=== PATIENT | male | born 1940 | race Caucasian/White ===

== ENCOUNTER 2020-07-10 07:06 | Day surgery (SDC) | payer OTHER ==
--- NOTE | 2020-07-05 13:14 | RAD REPORT ---
EXAM DESCRIPTION: RAD - Chest Pa And Lat (2 Views) - 07/05/2020 1:05 pm CLINICAL HISTORY: pre oppending hernia repair COMPARISON: March 27, 2020 TECHNIQUE: Frontal and lateral views of the chest were obtained. FINDINGS: The lungs are fibrotic. Bilateral nipple shadows are present. Additional calcified granulo ma noted. Diaphragm is flattened. Increased retrosternal space noted. An acute mass or infiltrate is not identified. Heart size is normal and central vasculature is within normal limits. No pleural e ffusion or pneumothorax seen. No acute bony finding noted. No aortic abnormality. IMPRESSION: COPD findings similar to March 2020. No acute finding.
[2020-07-05 14:06] LABS: Absolute Lymphocytes (CBC) 1.3 K/uL (0.7-4.9); Basophils % 0.7 % (0-1.3); Lymphocytes % 20.4 % (15.3-44.8); RBC Red Blood Cell Count 4.17 M/uL (4.33-5.43)
[2020-07-05 14:16] LABS: Potassium 4.1 mmol/L (3.5-5.1)
--- NOTE | 2020-07-08 07:48 | EKG ---
Test Date: 2020-07-05 Test Time: 12:40:24 Upper And Bottom Lacer Hand: JH MEASUREMENT RESULTS: Intervals: Rate: 63 WY: 188 QRSD: 112 QT: 434 QTc: 444 [place]: P: 80 WY: 188 QRS: 43 T: 67 INTERPRETIVE STATEMENTS: Normal sinus rhythm Incomplete left bundle branch block Borderline ECG Compared to ECG 03/27/2020 09:50:38 Left bundle-branch block now present ST (T wave) deviation no longer present Electronically Signed On 07-08-20 07:44:30 CDT by Milad Bradley
[2020-07-10] MEDS ORDERED: Ringers Lactate 1,000 ML IV ONE (07:37)
[2020-07-10] MEDS ORDERED: MIDAZOLAM HCL 2 MG/2 ML INJ ONE (07:46)
[2020-07-10] MEDS ORDERED: propofoL 200 MG/20 ML VIAL IV ONE ×2 (07:46→09:28)
[2020-07-10] MEDS ORDERED: LIDOCAINE 2% MPF 5 ML VIAL ONE (07:46)
[2020-07-10] MEDS ORDERED: FENTANYL CITR 100 MCG/2 ML ONE ×2 (07:46→09:28)
[2020-07-10] MEDS: CEFAZOLIN/SWI 1gm 1 GM/10 ML SYR ONE ×2 (09:06→09:30)
[2020-07-10] MEDS ORDERED: ROCURONIUM 50 MG/5 ML VIAL IV ONE (09:28)
[2020-07-10] MEDS ORDERED: LIDOCAINE 1% MPF 5 ML VIAL ONE (09:28)
[2020-07-10] MEDS ORDERED: LIDOCAINE JELLY 2%- 5 ML TUBE ONE (09:40)
[2020-07-10] MEDS ORDERED: EPHEDRINE SULF 50 MG/ML VIAL ONE (09:55)
[2020-07-10] MEDS ORDERED: NS 0.9% VIAL 10 ML ONE (09:55)
[2020-07-10] MEDS ORDERED: KETOROLAC 30 MG/ML INJ ONE (10:05)
[2020-07-10] MEDS ORDERED: ONDANSETRON 4 MG/2 ML VIAL ONE (10:05)
[2020-07-10] MEDS ORDERED: GLYCOPYRROLATE 0.2 MG/ML SYR ONE (10:05)
[2020-07-10] MEDS ORDERED: NEOSTIGMINE 1 MG/ML -5 ML ONE (10:05)
[2020-07-10] MEDS ORDERED: dexAMETHasone 4 MG/ML VIAL ONE (10:06)
--- NOTE | 2020-07-10 10:12 | P.BOP ---
Preoperative diagnosis: tender right inguinal hernia Postoperative diagnosis: same Primary procedure: Open repair of tender right inguinal hernia with mesh Hadoop Engineer: KRISHNA BREWSTER (NIGHT NURSE) Estimated blood loss: <10cc Specimen: hernia sac, lipoma of cord Findings: as above Anesthesia: General Complications: None Implants: mesh Transferred to: Recovery Room Condition: Good
--- NOTE | 2020-07-10 11:02 | OP ---
Date of Procedure: 07/10/2020 Surgeon: Jacob Price MD Preoperative Diagnosis: Tender right inguinal hernia. Postoperative Diagnosis: Tender right inguinal hernia. Procedure: Open repair of tender right inguinal hernia with mesh. Anesthesia: General plus local. Specimen: Hernia sac and lipoma of the cord. Indications: This is the case of a 79-year-old patient who comes to us with above diagnosis. Fully explained the benefits, alternatives, and risks of the repair of a tender right inguinal hernia with mesh with benefits, alternatives, and risks including but not limited to infection, bleeding, damage to adjacent structures, anesthesia complication, recurrence, [place], and even . He also understands this may not relieve any symptoms. He might need more than one surgical intervention. He agreed an d signed a consent. The patient also advised we are going to be using mesh in that region. Pros and cons of mesh placement were discussed with the patient. All his questions were answered to his sati sfaction. He did consent for the use of mesh. Procedure In Detail: The patient was brought to the operating room, placed in supine position. Anes thesia was achieved without complication. A time-out was called. Abdomen and inguinal region were p repped and draped in a sterile fashion, followed by incision in the skin going through Roya's fasci a until we find external oblique aponeurosis that was opened in direction of the fibers to connect to the superficial inguinal ring. The ilioinguinal nerve and iliohypogastric nerve were identified and protected behind external oblique aponeurosis. Sturbridge placed around the spermatic cord. After laura t, the spermatic cord area with cremasteric fibers was dissected and we identified the hernia sac and the lipoma of the cord. The vas deferens and the rest of the spermatic cord structures were protect ed at all times. The hernia sac was opened. We reduced the intestinal content that is not incarcera sukhwinder and is still viable and then twisted the hernia sac and suture ligated with 2-0 Prolene. The lip daina of the cord was transected with the help of a Chromic to be tied. At that moment, I proceeded to place a mesh plug over the deep inguinal ring and secured in place with VersaTack protecting the spe rmatic cord structures at all time. After that, I placed a mesh sheet on the floor of the canal secu ring that to the pubic tubercle, shelving edge of inguinal ligament and transversalis fascia, looped around the spermatic cord without strangulation. The area was irrigated. Suction was done. Local a nesthesia was applied. After that, I proceeded to bring the ilioinguinal nerve and iliohypogastric n erve back into the inguinal canal, and reconstructing the superficial inguinal ring, and closed the e xternal oblique aponeurosis protecting the nerve at all times. The area was irrigated. 3-0 chromic was used for the subcutaneous tissue and then the skin with everett. Sponge count and instrument cou nts were correct. The patient tolerated the procedure well. The patient was sent to recovery in sta ble condition. At the end of the case, the testicles were within the scrotum. JEAN-PIERRE/MAURICIO Voice ID: [id number] Report ID: [id number]
--- NOTE | 2020-07-10 11:04 | DS ---
Date of Discharge: 07/10/2020 Diagnosis: Right inguinal hernia. Procedure: Open repair of right inguinal hernia with mesh. Disposition: Home. Activity: As tolerated. No heavy lifting. Plan: Follow up in my office in 1 week. Call for appointment at [phone]. Keep area dry for 48 frederic rs, then may shower. Cold compress over the area for the next 24 hours. Scrotal support. JEAN-PIERRE/MAURICIO Voice ID: [id number] Report ID: [id number]
[2020-07-10 11:17] VITALS: BP 106/59; TEMP 97.5; O2SAT 100
[2020-07-10] MEDS ORDERED: CODEINE 30MG/APAP 300MG TAB ONE (11:47)
== END 2020-07-10 12:00 | disposition home or self-care (01) ==
LOC: OR 07:06
PROVIDERS: ATTEND Surgery
PROC: 0YU50JZ Supplement Right Inguinal Region with Synthetic Substitute, Open Approach (ICD-10-PCS; principal; 2020-07-10 08:45)
DX: K40.90 Unilateral inguinal hernia, without obstruction or gangrene, not specified as recurrent (principal); Z20.828 Contact with and (suspected) exposure to other viral communicable diseases
CPT/HCPCS: 93005; 85025; 80048; 36415; 88302; 71046; 49505; U0002; J2704; J1100; J3010; J2710; J0690; J7120; J2405; J2250

== ENCOUNTER 2020-09-01 12:30 | Inpatient (IN) | payer OTHER ==
[2020-09-01] MEDS ORDERED: METHYLPREDNISOLONE 125 MG INJ ONE ×2 (13:47→20:27)
[2020-09-01 13:58] LABS: Absolute Lymphocytes (CBC) 1.1 K/uL (0.7-4.9); Basophils % 0.6 % (0-1.3); Hematocrit 37.2 % (39.6-49.0); Lymphocytes % 12.8 % (15.3-44.8); MPV 7.9 fL (7.6-11.3); RBC Red Blood Cell Count 3.97 M/uL (4.33-5.43)
[2020-09-01] MEDS ORDERED: ALBUTEROL INHALER 60 PUFF/8 GM IH ONE (14:00)
--- NOTE | 2020-09-01 14:13 | RAD REPORT ---
EXAM DESCRIPTION: RAD - Chest Single View - 09/01/2020 2:04 pm CLINICAL HISTORY: SOB Chest pain. COMPARISON: Chest Pa And Lat (2 Views) dated 07/05/2020; Abdomen 1 View (KUB) dated 04/08/2020; Chest Pa And Lat (2 Views) dated 03/27/2020; Abdomen 1 View (KUB) dated 03/21/2020 FINDINGS: Portable technique limits examination quality. Prominent reticular opacities are present bilaterally, greater on the right, likely indicating modera te severity atypical pneumonia or viral bronchitis. The heart is normal in size. Mild aortic atherosc lerosis.
[2020-09-01 14:17] LABS: Protime INR 1.4
[2020-09-01 14:26] LABS: ALT/SGPT 31 U/L (12-78); AST/SGOT 25 U/L (15-37); Albumin 2.3 g/dL (3.4-5.0); Alkaline Phosphatase 85 U/L (45-117); BUN Blood Urea Nitrogen 14 mg/dL (7-18); Bicarbonate 26 mmol/L (21-32); Bilirubin Direct 0.3 mg/dL (0-0.2); Bilirubin Total 1.1 mg/dL (0.2-1.0); Glucose Level 115 mg/dL (74-106); Magnesium 2.2 mg/dL (1.8-2.4); NT PRO-BNP 1007 pg/mL (<450); Protein, Total 6.1 g/dL (6.4-8.2); Sodium Level 131 mmol/L (136-145); Troponin (Emerg Dept Use Only) < 0.02 ng/mL (0.0-0.045)
--- NOTE | 2020-09-01 15:42 | RAD REPORT ---
EXAM DESCRIPTION: CT - Chest For Pe Angio - 09/01/2020 3:15 pm CLINICAL HISTORY: Chest pain. SOB COMPARISON: Chest Single View dated 09/01/2020 TECHNIQUE: CT angiogram of the pulmonary arteries was performed with MIP. All CT scans are performed using dose optimization technique as appropriate and may include automated exposure control or mA/KV adjustment according to patient size. FINDINGS: No evidence of pulmonary thromboembolism. No acute aortic finding demonstrated. Advanced emphysema is seen with areas of ground-glass opacity both lungs, greater on the right in the right base. This may represent infection/ interstitial pneumonia. Small amount of pleural fluid is p resent bilaterally, greater on the right. Mild pericardial fluid also seen. Aortic atherosclerosis. No concerning bony finding. IMPRESSION: No evidence of pulmonary thromboembolism. Prominent COPD with asymmetric ground-glass opacities greater on the right suspicious for infection. Small bilateral pleural effusions and pericardial effusion.
[2020-09-01] MEDS ORDERED: Levofloxacin 750mg IV 750 MG/150 ML BAG IV ONE (15:55)
--- NOTE | 2020-09-01 16:05 | EDPHYS ---
Physician Documentation [facility] Name: Landon Saravia Jr Age: 79 yrs Sex: Male : 1940 Arrival Date: 09/01/2020 Time: 12:31 Bed 17 Private MD: ED Physician Oscar Villa HPI: 09/01 13:24 This 79 yrs old Male presents to ER via Ambulatory with complaints of cp Shortness Of Breath. 13:25 The patient has shortness of breath with light activity. cp 13:25 Onset: The symptoms/episode began/occurred 9 day(s) ago. Duration: The symptoms are cp continuous, and are steadily getting worse. Associated signs and symptoms: Pertinent positives: non-productive cough, Pertinent negatives: chest pain, diaphoresis, fever. Severity of symptoms: in the emergency department the symptoms are unchanged despite home interventions. Historical: - Allergies: 12:57 No Known Allergies; ca1 - PMHx: 12:57 Hypertension; High Cholesterol; CAD; Kidney stones; Cataracts; ca1 17:15 Dementia; ec1 - PSHx: 12:57 Heart stents; Hernia repair; ca1 - Immunization history:: Adult Immunizations up to date, Pneumococcal vaccine is up to date, Flu vaccine is not up to date. - Social history:: Smoking status: Patient/guardian denies using tobacco, the patient reports quitting approximately 26 years ago. ROS: 13:30 Constitutional: Negative for body aches, fever, poor PO intake. cp 13:30 Eyes: Negative for injury, pain, redness, and discharge. cp 13:30 ENT: Negative for ear pain, sore throat, difficulty swallowing, difficulty handling secretions. 13:30 Cardiovascular: Negative for chest pain, edema, palpitations. 13:30 Respiratory: Positive for dyspnea on exertion, shortness of breath, at rest. Negative for wheezing. 13:30 Abdomen/GI: Negative for abdominal pain, nausea, vomiting, and diarrhea. 13:30 Back: Negative for radiated pain. 13:30 Skin: Negative for cellulitis, rash. 13:30 Neuro: Negative for altered mental status, dizziness, headache, numbness, syncope, weakness. 13:30 All other systems are negative. Exam: 13:33 Constitutional: The patient appears alert, awake, non-diaphoretic, well developed, well cp nourished, in obvious distress, mildly distressed. 13:33 Head/Face: Normocephalic, atraumatic. cp 13:33 Eyes: Periorbital structures: appear normal, Conjunctiva: normal, no exudate, no cp injection, Lids and lashes: appear normal, bilaterally. 13:33 ENT: External ear(s): are unremarkable, Nose: is normal, Mouth: Lips: moist, Oral cp mucosa: moist, Posterior pharynx: Airway: no evidence of obstruction, patent. 13:33 Neck: ROM/movement: is normal, is supple, without pain, no range of motions limitations. 13:33 Chest/axilla: Inspection: normal, Palpation: is normal, no crepitus, no tenderness. 13:33 Cardiovascular: Rate: normal, Rhythm: regular, Edema: is not appreciated, JVD: is not appreciated. 13:33 Respiratory: the patient does not display signs of respiratory distress, Respirations: shallow respirations, that is mild, Breath sounds: decreased breath sounds, that are moderate, throughout, stridor, is not appreciated, wheezing: is not appreciated. 13:33 Abdomen/GI: Inspection: abdomen appears normal, Palpation: abdomen is soft and non-tender, in all quadrants. 13:33 Back: pain, is absent, ROM is normal. 13:33 Neuro: Orientation: to person, place \T\ time. Mentation: is normal, Motor: moves all fours, strength is normal. 13:52 ECG was reviewed by the Attending Physician. cp Vital Signs: 12:53 BP 121 / 66; Pulse 97; Resp 22; Temp 98(TE); Pulse Ox 82% on R/A; Weight 68.04 kg (R); ca1 Height 5 ft. 11 in. (180.34 cm) (R); Pain 0/10; 12:57 Pulse Ox 87% on R/A; ca1 13:04 Pulse Ox 86% on R/A; ec1 13:04 Pulse Ox 94% on 4 lpm NC; ec1 13:30 BP 118 / 77 (art line/); Pulse 97; Resp 22 S; Pulse Ox 95% on 4 lpm NC; ec1 15:00 BP 120 / 67; Pulse 86; Resp 20 S; Pulse Ox 92% on 4 lpm NC; ec1 16:00 BP 117 / 73; Pulse 21; Resp 88; Pulse Ox 94% on 4 lpm NC; hb 17:00 BP 123 / 81; Pulse 80; Resp 24; Pulse Ox 93% on 4 lpm NC; hb 18:00 BP 123 / 78; Pulse 82; Resp 23; Pulse Ox 95% on 4 lpm NC; hb 12:53 Body Mass Index 20.92 (68.04 kg, 180.34 cm) ca1 MDM: 14:05 Patient medically screened. 16:00 Data reviewed: vital signs, nurses notes, lab test result(s), EKG, radiologic studies, cp CT scan, plain films, and as a result, I will admit patient. 16:00 Physician consultation: Zhou Singh MD was called at 15:55, was contacted at 15:55, cp regarding admission, to the telemetry unit. patient's condition. 09/01 13:24 Order name: Basic Metabolic Panel; Complete Time: 14:47 cp 09/01 15:54 Interpretation: Normal except: NA 131; CL 97; GLUC 115; CA 8.1. 09/01 13:24 Order name: CBC with Diff; Complete Time: 14:21 cp 09/01 14:21 Interpretation: Normal except: RBC 3.97; HGB 13.3; HCT 37.2; MONSERRAT% 79.8; LYM% 12.8. cp 09/01 13:24 Order name: LFT's; Complete Time: 14:47 cp 09/01 13:24 Order name: Magnesium; Complete Time: 14:47 cp 09/01 13:24 Order name: NT PRO-BNP; Complete Time: 14:47 cp 09/01 13:24 Order name: PT-INR; Complete Time: 14:21 cp 09/01 13:24 Order name: Troponin (emerg Dept Use Only); Complete Time: 14:47 cp 09/01 13:24 Order name: Influenza Screen (a \T\ B); Complete Time: 14:47 cp 09/01 13:24 Order name: D-Dimer; Complete Time: 14:21 cp 09/01 13:24 Order name: CRP; Complete Time: 14:47 cp 09/01 15:06 Order name: Blood Culture Adult (2) ec1 09/01 16:21 Order name: Basic Metabolic Panel EDPR 09/01 16:21 Order name: Basic Metabolic Panel EDPR 09/01 13:24 Order name: XRAY Chest (1 view); Complete Time: 14:15 cp 09/01 14:15 Interpretation: Report reviewed. 09/01 13:24 Order name: EKG; Complete Time: 13:24 cp 09/01 13:24 Order name: Cardiac monitoring; Complete Time: 13:47 cp 09/01 14:48 Order name: CT Chest For PE Angio; Complete Time: 15:53 cp 09/01 16:15 Order name: CONS Physician Consult EDMS 09/01 16:21 Order name: Respiratory Therapy Consult EDMS 09/01 16:21 Order name: CBC with Automated Diff EDMS 09/01 16:21 Order name: CBC with Automated Diff EDMS 09/01 16:21 Order name: Lipid Profile EDMS 09/01 16:21 Order name: Lipid Profile EDMS 09/01 17:03 Order name: SARS-COV-2 RT PCR; Complete Time: 17:33 EDMS 09/01 17:33 Interpretation: Results reviewed. 09/02 04:16 Order name: C-Reactive Protein EDPR 09/02 05:03 Order name: Manual Differential EDPR 09/01 13:24 Order name: EKG - Nurse/Tech; Complete Time: 14:14 cp 09/01 13:24 Order name: IV Saline Lock; Complete Time: 13:47 cp 09/01 13:24 Order name: Labs collected and sent; Complete Time: 13:47 cp 09/01 13:24 Order name: O2 Per Protocol; Complete Time: 13:48 cp 09/01 13:24 Order name: O2 Sat Monitoring; Complete Time: 13:48 cp EC:52 Rate is 93 beats/min. Rhythm is regular. MS interval is normal. QRS interval is cp prolonged at 102 msec. QT interval is normal. Interpreted by me. Reviewed by me. Administered Medications: 13:47 Drug: SOLU-Medrol 125 mg Route: IVP; Site: right forearm; ec1 14:20 Follow up: Response: No adverse reaction ec1 13:58 Drug: Albuterol HFA Inhaler 2 puffs Route: Inhalation; ec1 14:30 Follow up: Response: No adverse reaction ec1 15:46 Drug: LevaQUIN 750 mg Volume: 150 ml; Route: IVPB; Infused Over: 90 mins; Site: left ec1 antecubital; 16:46 Follow up: Response: No adverse reaction; IV Status: Completed infusion; IV Intake: ec1 150ml Disposition: 09/01/20 16:05 Hospitalization ordered by Zhou Singh for Inpatient Admission. Preliminary diagnosis are Pneumonia due to other specified infectious organisms, Hypoxemia, Coronavirus infection, unspecified. - Bed requested for [facility] ER HOLD. - Status is Inpatient Admission. dw - Condition is Stable. - Problem is new. - Symptoms have improved. Addendum: 09/04/2020 19:44 Co-signature as Attending Physician, Oscar Villa MD. r n Signatures: Dispatcher [employer] [facility] Aida Julian RN RN Oscar Villa MD MD rn Smirch, Shelby RN CELINE Aramis Pearson PA PA cp Skylar Ridley RN RN ca1 Krystina Barahona RN RN ec1 Corrections: (The following items were deleted from the chart) 09/01 15:54 15:54 Normal except: NA 131; CL 97; GLUC 115. cp cp 16:05 16:05 Hospitalization Ordered by Zhou Singh MD for Inpatient Admission. Preliminary cp diagnosis is Pneumonia due to other specified infectious organisms. Bed requested for Telemetry/MedSurg (Inpatient). Status is Inpatient Admission. Condition is Stable. Problem is new. Symptoms have improved. cp 16:12 13:24 CORONAVIRUS+MR.LAB.BRZ ordered. [facility] 17:21 16:05 09/01/2020 16:05 Hospitalization Ordered by Zhou Singh MD for Inpatient ss Admission. Preliminary diagnosis is Pneumonia due to other specified infectious organisms; Hypoxemia. Bed requested for Telemetry/MedSurg (Inpatient). Status is Inpatient Admission. Condition is Stable. Problem is new. Symptoms have improved. cp 17:37 17:21 09/01/2020 16:05 Hospitalization Ordered by Zhou Singh MD for Inpatient cp Admission. Preliminary diagnosis is Pneumonia due to other specified infectious organisms; Hypoxemia. Bed requested for [facility] ER HOLD. Status is Inpatient Admission. Condition is Stable. Problem is new. Symptoms have improved. ss 09/02 20:39 09/01 17:37 09/01/2020 16:05 Hospitalization Ordered by Zhou Singh MD for Inpatient dw Admission. Preliminary diagnosis is Pneumonia due to other specified infectious organisms; Hypoxemia; Coronavirus infection, unspecified. Bed requested for [facility] ER HOLD. Status is Inpatient Admission. Condition is Stable. Problem is new. Symptoms have improved. cp
--- NOTE | 2020-09-01 16:05 | ER ---
Nurse's Notes [facility] Name: Landon Saravia Jr Age: 79 yrs Sex: Male : 1940 Arrival Date: 09/01/2020 Time: 12:31 Bed 17 Private MD: Diagnosis: Pneumonia due to other specified infectious organisms;Hypoxemia;Coronavirus infection, unspecified Presentation: 09/01 12:53 Chief complaint: Spouse and/or significant other states: : he's been having issues ca1 for 9 days. He is trouble breathing with any exertion, even with just standing up. Has some cough, nasal congestion, fatigue. Denies fever. Coronavirus screen: Client denies travel out of the [place] in the last 14 days. congestion, cough unrelated to allergies, difficulty breathing, shortness of breath, Client presents with at least one sign or symptom that may indicate coronavirus-19. Standard/surgical mask placed on the client. Provider contacted for isolation considerations. Ebola Screen: Patient negative for fever greater than or equal to 101.5 degrees Fahrenheit, and additional compatible Ebola Virus Disease symptoms Patient denies exposure to infectious person. Patient denies travel to an Ebola-affected area in the 21 days before illness onset. No symptoms or risks identified at this time. Initial Sepsis Screen: Does the patient meet any 2 criteria? RR > 20 per min. HR > 90 bpm. Yes Does the patient have a suspected source of infection? Yes: Productive cough/pneumonia. Risk Assessment: Do you want to hurt yourself or someone else? Patient reports no desire to harm self or others. Onset of symptoms was September 01, 2020. 12:53 Method Of Arrival: Ambulatory ca1 12:53 Acuity: LINDA 2 ca1 Triage Assessment: 19:16 Respiratory: Onset: The symptoms/episode began/occurred. ec1 19:16 Respiratory: Reports. ec1 Historical: - Allergies: 12:57 No Known Allergies; ca1 - PMHx: 12:57 Hypertension; High Cholesterol; CAD; Kidney stones; Cataracts; ca1 17:15 Dementia; ec1 - PSHx: 12:57 Heart stents; Hernia repair; ca1 - Immunization history:: Adult Immunizations up to date, Pneumococcal vaccine is up to date, Flu vaccine is not up to date. - Social history:: Smoking status: Patient/guardian denies using tobacco, the patient reports quitting approximately 26 years ago. Screenin:13 Abuse screen: Denies threats or abuse. Denies injuries from another. Nutritional ec1 screening: No deficits noted. Tuberculosis screening: No symptoms or risk factors identified. Fall Risk None identified. Assessment: 13:11 General: Appears in no apparent distress. comfortable, Behavior is calm, cooperative. ec1 Neuro: Level of Consciousness is awake, alert, obeys commands. Cardiovascular: Rhythm is sinus rhythm. Respiratory: Airway is patent Respiratory effort is even, unlabored, Respiratory pattern is tachypnea Breath sounds are coarse bilaterally. GI: No signs and/or symptoms were reported involving the gastrointestinal system. : No signs and/or symptoms were reported regarding the genitourinary system. EENT: No signs and/or symptoms were reported regarding the EENT system. Derm: No signs and/or symptoms reported regarding the dermatologic system. Musculoskeletal: No signs and/or symptoms reported regarding the musculoskeletal system. 15:39 Reassessment: Patient appears in no apparent distress at this time. No changes from ec1 previously documented assessment. Patient and/or family updated on plan of care and expected duration. Pain level reassessed. 16:30 Reassessment: Patient appears in no apparent distress at this time. No changes from hb previously documented assessment. Patient and/or family updated on plan of care and expected duration. Pain level reassessed. 17:30 Reassessment: Patient appears in no apparent distress at this time. No changes from hb previously documented assessment. Patient and/or family updated on plan of care and expected duration. Pain level reassessed. 18:13 Reassessment: Ailyn Saravia [phone] (cell). 18:30 Reassessment: Patient appears in no apparent distress at this time. No changes from hb previously documented assessment. Patient and/or family updated on plan of care and expected duration. Pain level reassessed. Vital Signs: 12:53 BP 121 / 66; Pulse 97; Resp 22; Temp 98(TE); Pulse Ox 82% on R/A; Weight 68.04 kg (R); ca1 Height 5 ft. 11 in. (180.34 cm) (R); Pain 0/10; 12:57 Pulse Ox 87% on R/A; ca1 13:04 Pulse Ox 86% on R/A; ec1 13:04 Pulse Ox 94% on 4 lpm NC; ec1 13:30 BP 118 / 77 (art line/); Pulse 97; Resp 22 S; Pulse Ox 95% on 4 lpm NC; ec1 15:00 BP 120 / 67; Pulse 86; Resp 20 S; Pulse Ox 92% on 4 lpm NC; ec1 16:00 BP 117 / 73; Pulse 21; Resp 88; Pulse Ox 94% on 4 lpm NC; hb 17:00 BP 123 / 81; Pulse 80; Resp 24; Pulse Ox 93% on 4 lpm NC; hb 18:00 BP 123 / 78; Pulse 82; Resp 23; Pulse Ox 95% on 4 lpm NC; hb 12:53 Body Mass Index 20.92 (68.04 kg, 180.34 cm) ca1 ED Course: 12:31 Patient arrived in ED. ds1 12:56 Triage completed. ca1 12:57 Arm band placed on right wrist. ca1 13:02 Krystina Barahona RN is Primary Nurse. ec1 13:11 Aramis Pearson PA is PHCP. cp 13:11 Oscar Villa MD is Attending Physician. cp 13:13 Placed in gown. Bed in low position. Adult w/ patient. ec1 13:48 Inserted saline lock: 20 gauge in right forearm, using aseptic technique. Blood ec1 collected. 14:04 XRAY Chest (1 view) In Process Unspecified. EDMS 15:[address] via stretcher. ec1 15:15 CT Chest For PE Angio In Process Unspecified. EDMS 15:38 Inserted saline lock: 20 gauge in left antecubital area, using aseptic technique. Blood ec1 collected. 16:04 Zhou Singh MD is Hospitalizing Provider. cp 19:12 Report given to Warren BERGER. ec1 20:29 Primary Nurse role handed off by Krystina Barahona RN mw2 Administered Medications: 13:47 Drug: SOLU-Medrol 125 mg Route: IVP; Site: right forearm; ec1 14:20 Follow up: Response: No adverse reaction ec1 13:58 Drug: Albuterol HFA Inhaler 2 puffs Route: Inhalation; ec1 14:30 Follow up: Response: No adverse reaction ec1 15:46 Drug: LevaQUIN 750 mg Volume: 150 ml; Route: IVPB; Infused Over: 90 mins; Site: left ec1 antecubital; 16:46 Follow up: Response: No adverse reaction; IV Status: Completed infusion; IV Intake: ec1 150ml Intake: 16:46 IV: 150ml; Total: 150ml. ec1 Outcome: 16:05 Decision to Hospitalize by Provider. shahid 09/02 20:39 Patient left the ED. dw Signatures: Dispatcher [employer] Aida Harrington RN RN Catalina Inman ds1 Sarah Garcia RN RN ss Aramis Pearson PA PA cp Baxter, Heather, RN RN Neil Bae mw2 Skylar Ridley RN RN ca1 Krystina Barahona RN RN ec1
[2020-09-01] MEDS ORDERED: ONDANSETRON 4 MG/2 ML VIAL IV PRN (16:15)
[2020-09-01] MEDS ORDERED: ACETAMINOPHEN 500 MG TAB PO PRN (16:15)
[2020-09-01] MEDS ORDERED: Levofloxacin 750mg IV 750 MG/150 ML BAG IV SCH (17:00)
--- NOTE | 2020-09-01 19:26 | P.CNS ---
Date of Consult: 09/01/20 Reason for Consult: Prado virus pneumonia Chief Complaint: Shortness of breath History of Present Illness: Patient is 79 years of age as been sick for about 9 days admitted with shortness of breath diagnosed with prado virus he is doing well chest x-ray shows asymmetrical changes he has fibrocystic lung disease Allergies No Known Allergies Allergy (Unverified 07/05/20 12:36) Home Medications: Amlodipine [Norvasc] 5 mg PO DAILY 07/05/20 Aspirin 81 mg PO DAILY 07/05/20 Atorvastatin Calcium [Lipitor] 80 mg PO DAILY 07/05/20 Ezetimibe [Zetia] 10 mg PO DAILY 07/05/20 Finasteride [Proscar] 5 mg PO DAILY 07/05/20 Folic Acid 3 mg PO BID 07/05/20 Memantine HCl 10 mg PO BID 07/05/20 Prevegan 1 tab PO DAILY 07/05/20 Tamsulosin [Flomax] 0.4 mg PO DAILY 07/05/20 Codeine/APAP [Tylenol W/Codeine #3 tab] 1 tab PO Q4HP PRN #30 tab 07/10/20 Sulfamethoxazole/Trimethoprim [Bactrim Ds Tablet] 1 each PO BID #10 tablet 07/10/20 - Past Medical/Surgical History -: Hypertension; High Cholesterol; CAD; Kidney stones; Cataracts; Review of Systems General: Weakness Respiratory: Shortness of Breath Physical Examination General: Alert HEENT: Atraumatic Neck: Supple Respiratory: Crackles/rales (Crackles on the right) Cardiovascular: No edema, Normal S1 S2 Gastrointestinal: Normal bowel sounds, Soft and benign Laboratory Data (last 24 hrs) 09/01/20 13:38: PT 16.4 H, INR 1.40 09/01/20 13:38: WBC 8.4, Hgb 13.3 L, Hct 37.2 L, Plt Count 252 09/01/20 13:38: Sodium 131 L, Potassium 4.0, BUN 14, Creatinine 0.73, Glucose 115 H, Magnesium 2.2, Total Bilirubin 1.1 H, AST 25, ALT 31, Alkaline Phosphatase 85 - Problems (1) Pneumonia due to 2019 novel coronavirus Current Visit: Yes Status: Acute Plan: Patient is 79 years of age been sick for a week admitted with dyspnea does have prominent interstitial changes were he has significant cystic changes on his chest x-ray is symmetric pneumonia worse on the right side laboratory data is un remarkable CRP PEs elevated BNP is also elevated was admitted with hypoxemia continue with present medication he continues to remain stable possible discharge tomorrow
[2020-09-01] MEDS ORDERED: ALBUTEROL 2.5 MG/3 ML NEB SOL NEB SCH (20:00)
[2020-09-01] MEDS ORDERED: IPRATROPIUM BROM 0.5MG/2.5ML NEB SCH (20:00)
[2020-09-01] MEDS ORDERED: ALBUTEROL 2.5 MG/3 ML NEB SOL ONE (20:05)
[2020-09-01] MEDS ORDERED: IPRATROPIUM BROM 0.5MG/2.5ML ONE (20:05)
[2020-09-01] MEDS: APIXABAN 5 MG TABLET PO SCH (21:00)
[2020-09-01] MEDS: METHYLPREDNISOLONE 40 MG INJ IV SCH (21:00)
[2020-09-02 00:52] VITALS: BMI 20.9
[2020-09-02 03:51] LABS: Absolute Lymphocytes (CBC) 0.5 K/uL (0.7-4.9); Basophils % 0.1 % (0-1.3); Hematocrit 34.7 % (39.6-49.0); Lymphocytes % 9.5 % (15.3-44.8); MPV 7.9 fL (7.6-11.3); RBC Red Blood Cell Count 3.75 M/uL (4.33-5.43)
[2020-09-02 04:15] LABS: BUN Blood Urea Nitrogen 15 mg/dL (7-18); Bicarbonate 25 mmol/L (21-32); Glucose Level 173 mg/dL (74-106); HDL Cholesterol 57 mg/dL (40-60); LDL Cholesterol, Calculated 48 (<130); Potassium 4.3 mmol/L (3.5-5.1); Sodium Level 134 mmol/L (136-145)
[2020-09-02 04:20] VITALS: O2SAT 93
[2020-09-02 05:03] LABS: Blood Morphology Comment NOT SEEN (NOT SEEN); Platelet Estimate ADEQ
--- NOTE | 2020-09-02 07:20 | P.PN ---
Subjective Date of Service: 09/02/20 Chief Complaint: Prado virus pneumonia Subjective: Improving (Patient is doing well no new complaints saturation satisfactory) Review of Systems General: Weakness Respiratory: Shortness of Breath Physical Examination - Vital Signs Temperature: 97.5 F Blood Pressure: 110/69 Pulse: 72 Respirations: 15 Pulse Ox (%): 93 - Studies Laboratory Data (last 24 hrs) 09/01/20 13:38: PT 16.4 H, INR 1.40 09/01/20 13:38: WBC 8.4, Hgb 13.3 L, Hct 37.2 L, Plt Count 252 09/01/20 13:38: Sodium 131 L, Potassium 4.0, BUN 14, Creatinine 0.73, Glucose 115 H, Magnesium 2.2, Total Bilirubin 1.1 H, AST 25, ALT 31, Alkaline Phosphatase 85 Microbiology Data (last 24 hrs): 09/01/20 13:38 Nasopharnyx Influenza Type A Antigen Screen - Final 09/01/20 13:38 Nasopharnyx Influenza Type B Antigen Screen - Final Assessment & Plan - Problems (Diagnosis) (1) Pneumonia due to 2019 novel coronavirus Current Visit: Yes Status: Acute Plan: Patient is currently doing well in a harper satisfactory with evaluate on room air possible discharge today continue with the prednisone 20 b.i.d. for at least a week and then 10 b.i.d. continue with full anticoagulation with Eliquis CRP is declining
[2020-09-02] MEDS ORDERED: METHYLPREDNISOLONE 40 MG INJ ONE (08:36)
[2020-09-02] MEDS: APIXABAN 5 MG TABLET PO SCH ×2 (09:00→18:00)
[2020-09-02] MEDS ORDERED: ASPIRIN EC 81 MG TAB PO SCH (09:00)
[2020-09-02] MEDS ORDERED: PNEUMOCOCCAL VACCINE 0.5 ML IMVAC ONE (09:00)
[2020-09-02] MEDS ORDERED: INFLUENZA VACCINE (for 3y+) 0.5 ML DOSE IMVAC ONE (09:00)
[2020-09-02] MEDS: METHYLPREDNISOLONE 40 MG INJ IV SCH (09:00)
[2020-09-02 13:18] VITALS: TEMP 98.1
--- NOTE | 2020-09-02 13:18 | P.SSS ---
Patient History Date of Service: 09/03/20 Reason for admission: Prado virus pneumonia History of Present Illness: MR. MACDONALD HAS NOT BEEN EXPOSED TO ANYONE HE KNOWS FOR COVID INFECTION. HE HAD COUGH AND BECAME DYSPNEIC. HE COMES TO ER AND HAS COVID POSITIVE STATUS. HE HAS VIRAL PNEUMONINA, OXYGEN SATURATION IS LOW NEEDING ABOUT 3 LT NC TO MAINTAIN THE SATURATION ABOVE 90%. HE IS STABLE, VERY CONFUSED AT BASELINE WITH DEMENTIA AND TRYING TO GET OUT OF BED. Allergies No Known Allergies Allergy (Verified 09/01/20 23:53) Home medications list reviewed: Yes Home Medications: Amlodipine [Norvasc] 5 mg PO DAILY 07/05/20 Aspirin 81 mg PO DAILY 07/05/20 Atorvastatin Calcium [Lipitor] 80 mg PO DAILY 07/05/20 Ezetimibe [Zetia*] 10 mg PO DAILY 07/05/20 Finasteride [Proscar*] 5 mg PO DAILY 07/05/20 Memantine HCl 10 mg PO BID 07/05/20 Prevegan 1 tab PO DAILY 07/05/20 Tamsulosin [Flomax*] 0.4 mg PO DAILY 07/05/20 Apixaban [Eliquis] 5 mg PO BID #60 tablet 09/02/20 predniSONE [Deltasone] 20 mg PO BID #60 tab 09/02/20 - Past Medical/Surgical History Has patient received pneumonia vaccine in the past: No Diabetic: No -: Hypertension; High Cholesterol; CAD; Kidney stones; Cataracts; - Social History Smoking Status: Never smoker Alcohol use: Yes CD- Drugs: No Caffeine use: Yes Place of Residence: Home Review of Systems 10-point ROS is otherwise unremarkable General: Weakness, Malaise Respiratory: Cough, Shortness of Breath Physical Examination - Vital Signs Temperature: 98.1 F Blood Pressure: 123/72 Pulse: 82 Respirations: 19 Pulse Ox (%): 94 - Physical Exam General: Alert, Mild distress, Confused (FROM DEMENTIA.) Neck: Supple, JVD not distended Respiratory: Other (RAISED RATE OF BREATHING.) Cardiovascular: Regular rate/rhythm Gastrointestinal: Normal bowel sounds, No tenderness Musculoskeletal: No tenderness Integumentary: No rashes Neurological: Normal gait, Normal speech Lymphatics: No axilla or inguinal lymphadenopathy - Studies Laboratory Data (last 24 hrs) 09/01/20 13:38: PT 16.4 H, INR 1.40 09/01/20 13:38: WBC 8.4, Hgb 13.3 L, Hct 37.2 L, Plt Count 252 09/01/20 13:38: Sodium 131 L, Potassium 4.0, BUN 14, Creatinine 0.73, Glucose 115 H, Magnesium 2.2, Total Bilirubin 1.1 H, AST 25, ALT 31, Alkaline Phosphatase 85 Microbiology Data (last 24 hrs): 09/01/20 13:38 Nasopharnyx Influenza Type A Antigen Screen - Final 09/01/20 13:38 Nasopharnyx Influenza Type B Antigen Screen - Final - Diagnosis (Problem(s)) (1) Pneumonia due to 2019 novel coronavirus Status: Acute Plan: PROGNOSIS IS GUARDED. DR. FITCH HAS APPROVED DISCHARGE. MOST PEOPLE DO GET HYPOXIC WHEN THEY DO ANYTHING DESPITE OXYGEN. STEROIDS AND ANTICOAGUALATION FOR A MONTH ABOUT. MAY NEED TO BE LONGER. DEMENTIA WILL BE AN ISSUE AT HOME . STEROIDS MAY TRIGGER HIM TO BE MORE AGITATED. I HAVE TALKED TO FAMILY. - Disposition Condition: FAIR
[2020-09-02] MEDS ORDERED: QUETIAPINE 25 MG TAB PO ONE (16:00)
[2020-09-02] MEDS ORDERED: APIXABAN 5 MG TABLET ONE (18:52)
[2020-09-03 06:04] VITALS: BP 123/72
== END 2020-09-02 20:38 | disposition home or self-care (01) | DRG 177 ==
LOC: ER 12:30 → ERHOLD 16:31
PROVIDERS: ADMIT Internal Medicine; ATTEND Internal Medicine
DX: U07.1 COVID-19 (principal); J12.89 Other viral pneumonia; F03.90 Unspecified dementia, unspecified severity, without behavioral disturbance, psychotic disturbance, mood disturbance, and anxiety; I10 Essential (primary) hypertension; I25.10 Atherosclerotic heart disease of native coronary artery without angina pectoris; Z95.5 Presence of coronary angioplasty implant and graft; Z87.891 Personal history of nicotine dependence; Z79.82 Long term (current) use of aspirin; Z79.899 Other long term (current) drug therapy; Z79.01 Long term (current) use of anticoagulants; Z79.52 Long term (current) use of systemic steroids
CPT/HCPCS: 36415; 71045; 71275; 80048; 80061; 80076; 83735; 83880; 84484; 85025; 85379; 85610; 86140; 87040; 87804; 93005; 96365; 96375; 99285; J2920; J2930; Q9967; U0003

== ENCOUNTER 2022-03-18 07:20 | Day surgery (SDC) | payer OTHER ==
[2022-03-17 16:06] LABS: Absolute Lymphocytes (CBC) 1.6 K/uL (0.7-4.9); Hematocrit 38.5 % (39.6-49.0); Lymphocytes % 21.6 % (15.3-44.8); MPV 7.6 fL (7.6-11.3); RBC Red Blood Cell Count 3.98 M/uL (4.33-5.43)
--- NOTE | 2022-03-17 16:08 | RAD REPORT ---
EXAM DESCRIPTION: RAD - Chest Pa And Lat (2 Views) - 03/17/2022 3:48 pm CLINICAL HISTORY: Pre op pending mass removal COMPARISON: Chest Single View dated 09/01/2020; Chest Pa And Lat (2 Views) dated 07/05/2020; Abdomen 1 View (KUB) dated 04/08/2020; Chest Pa And Lat (2 Views) dated 03/27/2020; Chest For Pe Angio dated 09/01 FINDINGS: Lines: None. Lungs: Nodular right upper lobe opacity. Emphysema. No other significant findings. Pleural: No significant pleural effusions or pneumothorax. Cardiac: The heart size is within normal limits. Bones: No acute fractures. Other: IMPRESSION: No acute cardiopulmonary disease. New right upper lobe nodular opacity. Recommend chest CT for further characterization.
[2022-03-17 16:18] LABS: Potassium 4.4 mmol/L (3.5-5.1)
--- NOTE | 2022-03-18 07:19 | EKG ---
Test Date: 2022-03-17 Test Time: 15:31:58 Podiatry Assistant: JH MEASUREMENT RESULTS: Intervals: Rate: 63 WY: 188 QRSD: 108 QT: 432 QTc: 442 [place]: P: 90 WY: 188 QRS: 55 T: 71 INTERPRETIVE STATEMENTS: Normal sinus rhythm Incomplete left bundle branch block Borderline ECG Compared to ECG 09/01/2020 13:46:25 Left bundle-branch block now present Atrial premature complex(es) no longer present ST (T wave) deviation no longer present Possible ischemia no longer present Electronically Signed On 03-18-22 07:17:23 CDT by Milad Bradley
[2022-03-18] MEDS ORDERED: LIDOCAINE 1% MPF 5 ML VIAL ONE (08:39)
[2022-03-18] MEDS ORDERED: propofoL 200 MG/20 ML VIAL IV ONE (08:39)
[2022-03-18] MEDS ORDERED: FENTANYL CITR 100 MCG/2 ML ONE (08:39)
[2022-03-18] MEDS ORDERED: dexAMETHasone 10 MG/ML VIAL ONE (08:39)
[2022-03-18] MEDS ORDERED: Ringers Lactate 1,000 ML IV ONE (08:47)
[2022-03-18] MEDS ORDERED: CELECOXIB 100 MG CAPSULE ONE (09:23)
[2022-03-18] MEDS ORDERED: ACETAMINOPHEN 500 MG TAB ONE (09:23)
[2022-03-18] MEDS ORDERED: CEFAZOLIN SODIUM 1 GM/VIAL ONE (09:44)
--- NOTE | 2022-03-18 09:55 | P.BOP ---
Preoperative diagnosis: infected upper back masses x 2 Postoperative diagnosis: same Primary procedure: 1. Excisional biopsy of infected upper mid back mass 5x5 cm Secondary procedure: 2. 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
[2022-03-18] MEDS ORDERED: GLYCOPYRROLATE 0.2 MG/ML SYR ONE ×2 (09:57→09:58)
[2022-03-18] MEDS ORDERED: EPHEDRINE SULF 50 MG/ML VIAL ONE (10:00)
--- NOTE | 2022-03-18 10:48 | OP ---
Surgeon: Jacob Price MD Diagnosis: Two upper back subcutaneous masses. Procedure: Excisional biopsy of 2 infected upper back subcutaneous masses. Disposition: Home. Activity: As tolerated. No heavy lifting. Plan: Follow up in my office in 1 week. Call for appointment at [phone]. Keep area dry for 48 frederic rs, then may remove outer dressings and shower. The patient is already taking Bactrim DS. JEAN-PIERRE/MAURICIO Voice ID: [id number] Report ID: [id number]
--- NOTE | 2022-03-18 10:48 | OP ---
Date of Procedure: 03/18/2022 Surgeon: Jacob Price MD Preoperative Diagnosis: Infected upper back subcutaneous masses x2. Postoperative Diagnosis: Infected upper back subcutaneous masses x2. Procedure: 1.Excisional biopsy of infected upper mid back infected subcutaneous mass, 5 x 5 cm. 2.Excisional biopsy of infected upper lateral back subcutaneous mass, 3 x 3 cm. Specimen: Masses. Anesthesia: General plus local. Indication: This is the case of an 81-year-old patient, who comes to us with 2 masses, mid and later al, but when you go to the area, they are very close. We have been treating 1 and he is having antib iotics for infection, has not resolved, still has an ulceration and still has drainage coming from th e area. Obviously, the patient wants that excised. One of them is large enough that even though the is trying to squeeze something out of it, but still cannot resolve. We offered him excision. Benefits, alternatives, and risks were fully explained, which include, but not limited to infection, bleeding, damage to adjacent structures, anesthesia complication, recurrence, AR and even . He also understands this may not relieve any symptoms. He might need more than one surgical interventio n. He understands he may require wet-to-dry dressing. Obviously, he has some limited resources and the willing to do wet-to-dry, but if possible, they asked us to close the area. In the next few days if we see that is not progressing, we might have to just let it be completely closed to close b y secondary intention and that may take a few months due to the size of area. Because of the infecti on, this have to be done probably. We discussed the patient to follow with his primary doctors. Procedure In Detail: The patient was brought to the operating room, placed in supine position. Anes thesia was done without complication. The patient was placed in lateral decubitus position with prop er protection. A time-out was called. Due to the proximity of the 2 areas, we are going to have a l arge wedge excision done to include the 2 areas altogether and also with it. Incision was carried do wn to subcutaneous tissue. We removed each mass individually, but 1 large area to be able to close p roperly. The area was irrigated. Irrigation was done. We did not see any pus in this case, so we w ill attempt to close this with the help of 0 chromic in layers and 3-0 chromic layers and then nylon on the skin. Sponge count, instrument counts correct. The patient tolerated the procedure well. Th e patient on his way to recovery in stable condition. JEAN-PIERRE/MAURICIO Voice ID: [id number] Report ID: [id number]
[2022-03-18 11:29] VITALS: BP 136/82; TEMP 96.5; O2SAT 100
== END 2022-03-18 11:44 | disposition home or self-care (01) ==
LOC: OR 07:20
PROVIDERS: ATTEND Surgery
PROC: 0JB70ZZ Excision of Back Subcutaneous Tissue and Fascia, Open Approach (ICD-10-PCS; principal; 2022-03-18 09:15)
DX: L72.0 Epidermal cyst (principal); Z20.822 Contact with and (suspected) exposure to COVID-19
CPT/HCPCS: 93005; 85025; 80048; 36415; 88305; 71046; 11406; 11403; U0003; J2704; J3010; J1100; J7120; J0690; 88304

== ENCOUNTER 2023-04-22 11:57 | Observation (INO) | payer OTHER ==
[2023-04-22 14:05] LABS: SARS-CoV-2 Antigen Rapid Res Negative (Negative)
[2023-04-22 14:15] LABS: Albumin 3.5 g/dL (3.4-5.0); Bilirubin Direct 0.4 mg/dL (0-0.2); Bilirubin Indirect, Calculated 1.1 mg/dL (0.2-0.8); Bilirubin Total 1.5 mg/dL (0.2-1.0); Protein, Total 6.2 g/dL (6.4-8.2)
[2023-04-22 14:45] LABS: Absolute Lymphocytes (CBC) 1.1 K/uL (0.7-4.9); Hematocrit 36.9 % (39.6-49.0); Lymphocytes % 10.7 % (15.3-44.8); MCV 93.2 fL (80-100); MPV 7.7 fL (7.6-11.3); RBC Red Blood Cell Count 3.96 M/uL (4.33-5.43)
--- NOTE | 2023-04-22 15:49 | RAD REPORT ---
EXAM DESCRIPTION: RAD - Chest Single View - 04/22/2023 3:41 pm CLINICAL HISTORY: Picc line placement COMPARISON: Chest Pa And Lat (2 Views) dated 04/21/2023; Chest Pa And Lat (2 Views) dated 08/06/2022; Chest Pa And Lat (2 Views) dated 03/17/2022; Chest Single View dated 09/01/2020; Chest For Pe Angio da sukhwinder 09/01/2020 FINDINGS: Lines: Right subclavian approach PICC with tip overlying the SVC in satisfactory position. Lungs: Nodular opacity at the right lung apex. This likely reflects scarring. Pleural: No significant pleural effusions or pneumothorax. Cardiac: The heart size is within normal limits. Mediastinum: Within normal limits. Bones: No acute fractures. Other: None IMPRESSION: PICC tip in satisfactory position overlying the SVC. Irregular right apical nodule could reflect scarring and has been present since at least 2021.
[2023-04-22] MEDS ORDERED: NA CHLORIDE 3% 500 ML IV SCH (16:00)
[2023-04-22] MEDS ORDERED: PNEUMOCOCCAL VACCINE 0.5 ML IMVAC ONE (17:00)
[2023-04-22 17:37] LABS: Specific Gravity 1.009 (1.005-1.030); Urine Bacteria None Seen /HPF (<20); Urine Bilirubin NEGATIVE (Negative); Urine Blood 1+ (Negative); Urine Clarity Clear (Clear); Urine Color Light-Yellow (Yellow); Urine Glucose NEGATIVE (Negative); Urine Protein NEGATIVE (Negative); Urine RBC <5 /HPF (None Seen); Urine Urobilinogen Normal (Normal)
[2023-04-22] MEDS ORDERED: ENOXAPARIN 40 MG/0.4 ML SQ SCH (18:00)
[2023-04-22] MEDS ORDERED: ACETAMINOPHEN 325 MG TABLET PO PRN (18:00)
[2023-04-22] MEDS ORDERED: LOPERAMIDE HCL 2 MG CAPSULE PO PRN (18:00)
[2023-04-22] MEDS ORDERED: ONDANSETRON 4 MG (ODT) TAB PO PRN (18:00)
[2023-04-22] MEDS ORDERED: ONDANSETRON 4 MG/2 ML VIAL IV PRN (18:00)
[2023-04-22] MEDS ORDERED: POLYETHYL GLY 3350 17 GM/DOSE PO PRN (18:00)
[2023-04-22] MEDS ORDERED: DIPHENHYDRAMINE 25 MG TAB/CAP PO PRN (18:00)
[2023-04-22 18:06] VITALS: BMI 18.3
[2023-04-22 20:07] LABS: Potassium 3.4 mEq/L (3.5-5.1)
[2023-04-22] MEDS ORDERED: Mupirocin NASAL 2 APPL/1 GM TUBE NAS SCH (21:00)
[2023-04-22 21:10] VITALS: O2SAT 100
[2023-04-22] MEDS ORDERED: POTASSIUM 25 MEQ EFFERV TAB PO ONE (21:17)
[2023-04-22] MEDS ORDERED: NA CHLORIDE 0.9% 1,000 ML IV SCH (22:00)
[2023-04-22] MEDS ORDERED: ASPIRIN 81 MG CHEWABLE TABLET PO SCH (22:00)
[2023-04-23 01:58] LABS: Potassium 3.9 mEq/L (3.5-5.1)
[2023-04-23 05:18] LABS: Absolute Lymphocytes (CBC) 1.6 K/uL (0.7-4.9); Hematocrit 35.2 % (39.6-49.0); Lymphocytes % 19.6 % (15.3-44.8); MCV 92.3 fL (80-100); MPV 7.8 fL (7.6-11.3); RBC Red Blood Cell Count 3.82 M/uL (4.33-5.43)
[2023-04-23 05:28] LABS: Magnesium 2.2 mg/dL (1.6-2.4); Potassium 3.8 mEq/L (3.5-5.1)
[2023-04-23 08:52] VITALS: BP 143/72; TEMP 97.6
[2023-04-23] MEDS ORDERED: TAMSULOSIN 0.4 MG SR CAP PO SCH (09:00)
[2023-04-23] MEDS ORDERED: MEMANTINE HCL 10 MG TABLET PO SCH (09:00)
[2023-04-23] MEDS ORDERED: POTASSIUM 25 MEQ EFFERV TAB PO ONE (09:00)
[2023-04-23] MEDS ORDERED: ATORVASTATIN 80 MG TAB PO SCH ×2 (09:00→21:00)
[2023-04-23] MEDS ORDERED: AMLODIPINE 5 MG TAB PO SCH (09:00)
[2023-04-23] MEDS ORDERED: FINASTERIDE 5 MG TAB PO SCH (09:00)
[2023-04-23] MEDS ORDERED: EZETIMIBE 10 MG TAB PO SCH (09:00)
--- NOTE | 2023-04-23 16:11 | P.DS ---
Admission Date: 04/22/23 Discharge Date: 04/23/23 Disposition: ROUTINE DISCHARGE Discharge Condition: FAIR Hospital Course: Mr Saravia has severe dementia. He drinks a lot of water. His sodium is down to 116 per [facility] report. HE was admitted for management. After 3% saline the sodium is up to122. He is stable. HE will restrict fluids. He is stable for dc. Family wants him home as it very difficult for him to be managed in hospital. Vital Signs/Physical Exam: Temp Pulse Resp BP Pulse Ox 97.6 F 58 14 143/72 H 100 04/23/23 08:00 04/23/23 08:00 04/23/23 08:00 04/23/23 08:00 04/23/23 06:00 Laboratory Data at Discharge: WBC 8.00 thou/uL (4.3-10.9) 04/23/23 04:35 Hgb 12.8 g/dL (13.6-17.9) L 04/23/23 04:35 Hct 35.2 % (39.6-49.0) L 04/23/23 04:35 Plt Count 158 thou/uL (152-406) 04/23/23 04:35 Sodium Cancelled 04/23/23 11:00 Potassium Cancelled 04/23/23 11:00 BUN Cancelled 04/23/23 11:00 Creatinine Cancelled 04/23/23 11:00 Glucose Cancelled 04/23/23 11:00 Magnesium 2.2 mg/dL (1.6-2.4) 04/23/23 04:35 Total Bilirubin 1.5 mg/dL (0.2-1.0) H 04/22/23 13:12 AST 15 U/L (15-37) 04/22/23 13:12 ALT 22 U/L (16-61) 04/22/23 13:12 Alkaline Phosphatase 85 U/L (45-117) 04/22/23 13:12 Home Medications: Amlodipine [Norvasc] 5 mg PO DAILY 07/05/20 Aspirin 81 mg PO SEECOM 07/05/20 Atorvastatin Calcium [Lipitor] 80 mg PO DAILY 07/05/20 Ezetimibe [Zetia*] 10 mg PO DAILY 07/05/20 Finasteride [Proscar*] 5 mg PO DAILY 07/05/20 Memantine HCl 10 mg PO BID 07/05/20 Tamsulosin [Flomax*] 0.4 mg PO DAILY 07/05/20
== END 2023-04-23 08:45 | disposition home or self-care (01) ==
LOC: 3RD-ICU 11:57
PROVIDERS: ADMIT Internal Medicine; ATTEND Internal Medicine
DX: E87.1 Hypo-osmolality and hyponatremia (principal); F03.C0 Unspecified dementia, severe, without behavioral disturbance, psychotic disturbance, mood disturbance, and anxiety; Z20.822 Contact with and (suspected) exposure to COVID-19
CPT/HCPCS: 36569; 87088; 85025 ×2; 81001; 87086; 80048 ×4; 36415 ×2; 83735 ×2; 80076; 83930; 83935; 71045; 87811; J1650; J7131; J7030

== ENCOUNTER 2024-03-12 12:51 | Emergency (ER) | payer OTHER ==
[2024-03-12] MEDS ORDERED: NA CHLORIDE 0.9% 1,000 ML ONE (13:32)
[2024-03-12] MEDS ORDERED: DIAZEPAM 10 MG/2 ML INJ SYRINGE ONE (13:32)
[2024-03-12 13:36] LABS: Absolute Lymphocytes (CBC) 0.5 K/uL (0.7-4.9); Absolute Monocytes 0.6 K/uL (0.1-1.3); Absolute Neutrophil 11.7 K/uL (1.8-8.0); Basophils % 0.3 % (0-1.3); Hematocrit 36.9 % (39.6-49.0); Hemoglobin 12.7 g/dL (13.6-17.9); Lymphocytes % 3.5 % (15.3-44.8); MCH 33.1 pg (27.0-35.0); MCHC 34.5 g/dL (32.0-36.0); MCV 96.1 fL (80-100); MPV 8.5 fL (7.6-11.3); Monocytes % 4.8 % (3.3-12.3); Neutrophils % 91.4 % (41.7-73.7); Platelets 117 thou/uL (152-406); RBC Red Blood Cell Count 3.83 M/uL (4.33-5.43)
--- NOTE | 2024-03-12 13:42 | RAD REPORT ---
EXAM DESCRIPTION: CT - Head Brain Wo Cont - 03/12/2024 1:35 pm CLINICAL HISTORY: CONFUSED Headache, drowsiness COMPARISON: No comparisons TECHNIQUE: All CT scans are performed using dose optimization technique as appropriate and may inclu de automated exposure control or mA/KV adjustment according to patient size. FINDINGS: No intracranial hemorrhage, hydrocephalus or extra-axial fluid collection.Advanced general ized brain atrophy is present with advanced periventricular and deep white matter chronic microvascul ar ischemic changes.No areas of brain edema or evidence of midline shift. Left vertebral atherosclero sis. The paranasal sinuses and mastoids are clear. The calvarium is intact. IMPRESSION: No acute intracranial abnormality.
[2024-03-12 13:52] LABS: AST/SGOT < 10 U/L (15-37); Alkaline Phosphatase 83 U/L (45-117); Anion Gap 11.7 mEq/L (5.0-15.0); BUN Blood Urea Nitrogen 26 mg/dL (7-18); Bicarbonate 22 mEq/L (21-32); Bilirubin Total 1.3 mg/dL (0.2-1.0); Creatine Phosphokinase 54 U/L (39-308); Globulin 2.9 g/dL (2.3-3.5); Glomerular Filtration Rate 63 ml/min (=/>90); Glucose Level 179 mg/dL (74-106); Lipase 26 U/L (13-75); Potassium 3.7 mEq/L (3.5-5.1); Protein, Total 5.9 g/dL (6.4-8.2); Sodium Level 142 mEq/L (136-145)
[2024-03-12 13:53] LABS: ALT/SGPT < 14 U/L (16-61)
[2024-03-12 14:11] LABS: Specific Gravity 1.025 (1.005-1.030); Sqamous Epithelial <5 /HPF (None Seen); Urine Bacteria <20 /HPF (<20); Urine Bilirubin NEGATIVE (Negative); Urine Blood Negative (Negative); Urine Clarity Turbid (Clear); Urine Color Yellow (Yellow); Urine Culture Reflex Order NOT NEEDED; Urine Glucose NEGATIVE (Negative); Urine Ketones NEGATIVE (Negative); Urine Microscopic Reflex YN ORDER UMIC; Urine Mucus 2+ /HPF (None Seen); Urine Nitrite NEGATIVE (Negative); Urine Protein TRACE (Negative); Urine RBC <5 /HPF (None Seen); Urine Urobilinogen Normal (Normal); Urine WBC <5 /HPF (<5); Urine pH 5.5 (5.0-7.0)
[2024-03-12 14:26] LABS: Blood Morphology Comment NOT SEEN (NOT SEEN); Platelet Estimate DECR; White Blood Cell Scan OK (OK)
--- NOTE | 2024-03-12 14:58 | EDPHYS ---
Physician Documentation [facility] Name: Landon Saravia Jr Age: 83 yrs Sex: Male : 1940 Arrival Date: 03/12/2024 Time: 12:51 Bed 5 Private MD: ED Physician Ramon Salinas HPI: 03/12 13:11 This 83 yrs old Male presents to ER via EMS with complaints of ec2 Nausea/Vomiting/Diarrhea. 13:11 Patient arrives today for evaluation of altered mental status as well as nausea, ec2 vomiting, diarrhea. Patient with history of advanced dementia, was in the backyard wandering, found to have vomitus on his body. Patient also little more confused than his baseline. EMS reports that the given the patient crystalloid, was initially hypotensive however responsive to the fluid with improved blood pressures. Also now more alert for the patient .. Historical: - Allergies: 13:08 No Known Allergies; hb - Home Meds: 13:08 amlodipine 5 mg oral tablet daily [Active]; finasteride 5 mg oral tablet daily hb [Active]; memantine 28 mg oral Capsule, Sprinkle Ext Rel 24hr Dose Pack [Active]; ezetimibe 10 mg oral tablet [Active]; atorvastatin 80 mg oral tablet [Active]; donepezil 5 mg oral tablet [Active]; tamsulosin 0.4 mg oral capsule [Active]; Seroquel Oral [Active]; - PMHx: 13:08 CAD; Cataracts; Dementia; High Cholesterol; Hypertension; Kidney stones; hb - Immunization history:: Adult Immunizations up to date. - Infectious Disease History:: Denies. - Social history:: Smoking status: Patient denies any tobacco usage or history of. ROS: 13:11 Constitutional: as per hpi ec2 Exam: 13:11 Constitutional: GEN: NAD Head: atraumatic Eyes: EOMI Ears: External ears are ec2 normal. CV: regular rate LUNGS: no respiratory distress ABD: non-distended, soft, nontender, no guarding, not rigid. SKIN: no evidence of rashes MSK: no evidence of trauma NEURO: moves all extremities equally, confused individual Vital Signs: 13:05 BP 137 / 61; Pulse 88; Resp 18; Temp 98.5(A); Pulse Ox 96% on R/A; Weight 68.04 kg; hb Height 5 ft. 11 in. ; Pain 0/10; 13:45 BP 134 / 71; Pulse 96; Resp 19; Pulse Ox 92% on R/A; ko1 14:06 Pulse Ox 97% on 2 lpm NC; ko1 15:41 BP 137 / 76; Pulse 84; Resp 18; Pulse Ox 97% on R/A; ko1 13:05 Body Mass Index 20.92 (68.04 kg, 180.34 cm) hb 13:05 Pain Scale: Non-Verbal hb MDM: 13:01 Patient medically screened. ec2 13:11 Data reviewed: vital signs. ED course: Patient arrives today for evaluation of altered ec2 mental status as well as nausea, vomiting, diarrhea. Examination remarkable for well-appearing nontoxic dividual's otherwise in no acute distress who has a intact neurologic exam and is well-appearing. Will obtain lab work, CT imaging of the head, give the patient additional crystalloid as well as obtain urine studies. Differential diagnosis includes urinary tract infection, anemia, dehydration, rhabdomyolysis.. 14:09 ED course: CBC shows slight leukocytosis of 12.8. Metabolic profile is reassuring with ec2 her electrolytes and renal function. Lipase within normal ranges. CT scan of the head shows no acute intracranial normality. Pending urine studies. Patient does meet SIRS criteria however have no identifiable or highly suspected cause for possible infection. . 14:53 ED course: Urine is noninfectious appearing. . ec2 14:57 ED course: On reassessment patient is well-appearing in no acute distress. I discussed ec2 possible inpatient hospitalization for this reported altered mental status however family and daughter, who is a nurse, felt comfortable to return to home. I see no evidence to suggest necessitation of immediate admission. I instructed them if delirium worsens or changes and he should return to emergency department for admission. Patient discharged home. Return precautions given to family. 03/12 13:11 Order name: CBC with Diff; Complete Time: 14:52 ec2 03/12 13:11 Order name: CMP; Complete Time: 14:09 ec2 03/12 13:11 Order name: Lipase; Complete Time: 14:09 ec2 03/12 13:11 Order name: Urinalysis w/ reflexes; Complete Time: 14:52 ec2 03/12 13:11 Order name: CK; Complete Time: 14:09 ec2 03/12 13:40 Order name: CBC Smear Scan; Complete Time: 14:52 EDMS 03/12 13:11 Order name: CT Head Brain wo Cont; Complete Time: 14:09 ec2 03/12 13:11 Order name: IV Saline Lock; Complete Time: 13:23 ec2 03/12 13:11 Order name: Labs collected and sent; Complete Time: 13:37 ec2 03/12 13:11 Order name: Cath; Complete Time: 13:59 ec2 Administered Medications: 13:30 Drug: NS 0.9% IV 1000 ml IV at 1 bolus Per protocol; 1000 mL bolus Route: IV; Rate: 1 ko1 bolus; Site: right forearm; 15:09 Follow up: Response: No adverse reaction; IV Status: Completed infusion; IV Intake: ko1 1000ml 13:30 Drug: Diazepam IVP 5 mg IVP once Route: IVP; Site: right forearm; ko1 13:45 Follow up: Response: No adverse reaction ko1 Disposition Summary: 03/12/24 14:58 Discharge Ordered Notes: Location: Home ec2 Condition: Stable ec2 Diagnosis - Altered mental status, unspecified ec2 - Nausea with vomiting, unspecified ec2 Followup: ec2 - With: Private Physician - When: - Reason: Re-evaluation by your physician Discharge Instructions: - Discharge Summary Sheet ec2 - Confusion ec2 Forms: - Medication Reconciliation Form ec2 - Antibiotic Education ec2 - Prescription Opioid Use ec2 - Patient Portal Instructions ec2 - Leadership Thank You Letter ec2 Signatures: Dispatcher [employer] EDChantel Martínez RN RN Criss Desai RN RN ko1 Ramon Salinas MD MD ec2 Corrections: (The following items were deleted from the chart) 13:11 13:11 CBC+H.LAB.BRZ ordered. EDMS EDMS 13:11 13:11 COMPREHENSIVE METABOLIC PANEL+C.LAB.BRZ ordered. EDMS EDMS 13:11 13:11 LIPASE+C.LAB.BRZ ordered. EDMS EDMS 13:11 13:11 Urinalysis+U.LAB.BRZ ordered. EDMS EDMS 13:11 13:11 CREATINE PHOSPHOKINASE+C.LAB.BRZ ordered. EDMS EDMS 13:12 13:11 Patient arrives today for evaluation of altered mental status as well as nausea, ec2 vomiting, diarrhea.. ec2
--- NOTE | 2024-03-12 14:58 | ER ---
Nurse's Notes [facility] [place] Name: Landon Saravia Jr Age: 83 yrs Sex: Male : 1940 Arrival Date: 03/12/2024 Time: 12:51 Bed 5 Private MD: Diagnosis: Altered mental status, unspecified;Nausea with vomiting, unspecified Presentation: 03/12 13:05 Chief complaint: EMS states: Has dementia, was sitting on outside patio as usual, found hb by covered in vomit and diarrhea x 1. VS WNL. 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 Coronavirus screen: At this time, the client does not indicate any symptoms associated with coronavirus-19. Ebola Screen: No symptoms or risks identified at this time. Initial Sepsis Screen: Does the patient meet any 2 criteria? No. Patient's initial sepsis screen is negative. Does the patient have a suspected source of infection? No. Patient's initial sepsis screen is negative. Risk Assessment: Do you want to hurt yourself or someone else? Patient reports no desire to harm self or others. Onset of symptoms was March 12, 2024. 13:05 Method Of Arrival: EMS: [facility] hb 13:05 Acuity: LINDA 3 hb Triage Assessment: 13:00 General: Appears ill. ko1 15:40 GI: Reports diarrhea, vomiting. ko1 Historical: - Allergies: 13:08 No Known Allergies; hb - Home Meds: 13:08 amlodipine 5 mg oral tablet daily [Active]; finasteride 5 mg oral tablet daily hb [Active]; memantine 28 mg oral Capsule, Sprinkle Ext Rel 24hr Dose Pack [Active]; ezetimibe 10 mg oral tablet [Active]; atorvastatin 80 mg oral tablet [Active]; donepezil 5 mg oral tablet [Active]; tamsulosin 0.4 mg oral capsule [Active]; Seroquel Oral [Active]; - PMHx: 13:08 CAD; Cataracts; Dementia; High Cholesterol; Hypertension; Kidney stones; hb - Immunization history:: Adult Immunizations up to date. - Infectious Disease History:: Denies. - Social history:: Smoking status: Patient denies any tobacco usage or history of. Screenin:35 [facility] ED Fall Risk Assessment (Adult) History of falling in the last 3 months, ko1 including since admission No falls in past 3 months (0 pts) Confusion or Disorientation Yes (5 pts) Intoxicated or Sedated No (0 pts) Impaired Gait No (0 pts) Mobility Assist Device Used No (0 pt) Altered Elimination Yes (1 pt) Score/Fall Risk Level 3 or more points = High Risk Oriented to surroundings, Maintained a safe environment, Educated pt \T\ family on fall prevention, incl call for assistance when getting out of bed, Assessed \T\ reinforced patient's understanding of fall precautions, Provided non-skid footwear, Hourly rounding (assess needs \T\ fall precautionary measures) done, Used ambulatory aids as needed (educated on \T\ assisted with), Used gait belt as appropriate Implemented a Fall Risk Plan of Care, Apply high fall risk patient identification: yellow non skid footwear/ fall signage, Remained w/in arm's length of patient and in sight while toileting, Offered frequent toileting (1:1 observation), Remained with patient while ambulating, Utilized family, sitter, or virtual tree wrapper as indicated. Abuse screen: Denies threats or abuse. Denies injuries from another. Nutritional screening: No deficits noted. Tuberculosis screening: No symptoms or risk factors identified. Assessment: 13:35 General: Appears in no apparent distress. Behavior is drowsy, restless. Pain: Unable to ko1 use pain scale. Patient is disoriented. Neuro: Level of Consciousness is confused, Oriented to none. Cardiovascular: No deficits noted. Respiratory: No deficits noted. GI: Abdomen is flat, non-distended. GI: Parent/caregiver reports the patient having diarrhea, nausea, vomiting. : No deficits noted. EENT: No deficits noted. Derm: No deficits noted. Musculoskeletal: No deficits noted. 15:39 Reassessment: long discharge process due to patients dementia/lack of cooperation. ko1 Vital Signs: 13:05 BP 137 / 61; Pulse 88; Resp 18; Temp 98.5(A); Pulse Ox 96% on R/A; Weight 68.04 kg; hb Height 5 ft. 11 in. ; Pain 0/10; 13:45 BP 134 / 71; Pulse 96; Resp 19; Pulse Ox 92% on R/A; ko1 14:06 Pulse Ox 97% on 2 lpm NC; ko1 15:41 BP 137 / 76; Pulse 84; Resp 18; Pulse Ox 97% on R/A; ko1 13:05 Body Mass Index 20.92 (68.04 kg, 180.34 cm) hb 13:05 Pain Scale: Non-Verbal hb ED Course: 12:57 Patient arrived in ED. hb 12:59 Ramon Salinas MD is Attending Physician. ec2 13:08 Triage completed. hb 13:11 Arm band placed on. hb 13:15 Su cath removed intact, balloon deflated. ko1 13:35 Patient has correct armband on for positive identification. Fall risk band placed. ko1 Placed in gown. Bed in low position. Call light in reach. Side rails up X2. Provided Education on: call light, meds. Client placed on continuous cardiac and pulse oximetry monitoring. NIBP monitoring applied. monitoring tech on. Door closed. Noise minimized. Lights dimmed. Warm blanket given. 13:35 No provider procedures requiring assistance completed. Initial lab(s) drawn, by me, ko1 sent to lab. Urine collected: Su catheter specimen, clear, rubens colored. Su cath inserted, using sterile technique, 16 Fr., by me, balloon inflated, to gravity drainage, urine specimen collected. Patient tolerated well. Maintain EMS IV. Dressing intact. Good blood return noted. Site clean \T\ dry. Gauge \T\ site: 18g right FA. 13:37 CT Head Brain wo Cont In Process Unspecified. EDMS 13:37 CBC with Diff Sent. ko1 13:37 CMP Sent. ko1 13:37 Lipase Sent. ko1 13:58 Criss Desai, RN is Primary Nurse. ko1 15:33 IV discontinued, intact, bleeding controlled, No redness/swelling at site. Pressure as6 dressing applied. Administered Medications: 13:30 Drug: NS 0.9% IV 1000 ml IV at 1 bolus Per protocol; 1000 mL bolus Route: IV; Rate: 1 ko1 bolus; Site: right forearm; 15:09 Follow up: Response: No adverse reaction; IV Status: Completed infusion; IV Intake: ko1 1000ml 13:30 Drug: Diazepam IVP 5 mg IVP once Route: IVP; Site: right forearm; ko1 13:45 Follow up: Response: No adverse reaction ko1 Medication: 13:35 VIS not applicable for this client. ko1 Intake: 15:09 IV: 1000ml; Total: 1000ml. ko1 Outcome: 13:15 Discharge instructions given to family, Instructed on discharge instructions, follow up ko1 and referral plans. Demonstrated understanding of instructions, follow-up care, 14:58 Discharge ordered by . ec2 15:33 Discharged to home via wheelchair, with family, as6 15:33 Condition: stable 15:41 Patient left the ED. ko1 Signatures: Dispatcher [employer] EDChantel Martínez RN RN Luis Manuel Rivera RN RN as6 Criss Desai RN RN ko1 Ramon Salinas MD MD ec2 Corrections: (The following items were deleted from the chart) 13:08 13:05 BP 137 / 61; Pulse 88bpm; Resp 18bpm; Pulse Ox 96% RA; Temp 98.5F Axillary; Pain hb 0/10, Non-Verbal; hb
[2024-03-12 15:54] VITALS: BP 134/71; TEMP 98.5; O2SAT 97
== END 2024-03-12 15:41 | disposition home or self-care (01) ==
LOC: ER 12:51
DX: R41.82 Altered mental status, unspecified (principal); R11.2 Nausea with vomiting, unspecified
CPT/HCPCS: 96361; 85025; 81001; 36415; 82550; 83690; 80053; 70450; 51702; 96374; 99285; J3360; J7030